=== PATIENT | male | born 1980 | race Caucasian/White ===

== ENCOUNTER → 2017-09-19 | Outpatient (CLI) | payer OTHER ==
--- NOTE | 2017-09-19 12:52 | DIAGNOSTIC IMAGING REPORT ---
SINUSES WITH BRAIN LAB CLINICAL HISTORY: 37 years-old Male presenting with CHRONIC CHRONIC SINUSITIS, HISTORY OF SINUS SURGERY with polypectomy. TECHNIQUE: Multidetector CT of the sinuses was performed without the use of intravenous contrast. IV contrast: None. A dose lowering technique was used consistent with the principles of ALARA (as low as reasonably achievable). COMPARISON: None. CT DOSE (mGy.cm): The estimated cumulative dose is 660.97 mGy.cm. FINDINGS: Refining Supervisor topogram: Unremarkable. Postsurgical changes of bilateral ethmoidectomies. Mild mucosal thickening evident in the left frontal sinus, residual ethmoid air cells, and maxillary sinuses. There is obstruction of the left ostiomeatal unit secondary to mucosal thickening and a Dean cell and prominent septation within the left maxillary sinus. Mild narrowing of the right ostiomeatal unit secondary to a Dean cell and mucosal thickening. Mucosal thickening obstructs the right nasal frontoethmoidal recess and narrows the recess on the left. Sphenoid sinuses and mastoid air cells patent. Middle ears patent. No osseous sclerosis or erosion. The bony nasal septum is essentially midline. No evidence of bony dehiscence of the optic canals or carotid siphons. The right clinoid process is aerated. No evidence of an Onodi cell. Orbits normal. Limited intracranial evaluation within normal limits. IMPRESSION: 1. Postsurgical changes of ethmoidectomies. Mild mucosal thickening results in narrowing and obstruction as above. Anatomic variants as above. No current evidence of acute or chronic sinusitis. Electronically signed by: Reji Gleason M.D. 09/19/2017 12:51 PM Dictated Date/Time: 09/19/2017 12:45 PM
== END | disposition home or self-care (01) ==
LOC: C.CTS 12:33
PROVIDERS: ATTEND Otolaryngology
DX: J32.9 Chronic sinusitis, unspecified (principal)